=== PATIENT | male | born 1960 | race Caucasian/White ===

== ENCOUNTER 2017-10-29 13:20 | Day surgery (SDC) | payer OTHER ==
[2017-10-29] MEDS ORDERED: LACTATED RINGERS 1,000 ML IV ONE (13:22)
[2017-10-29] MEDS ORDERED: fentaNYL 100 MCG/2 ML VIAL IVP ONE (14:51)
[2017-10-29] MEDS ORDERED: MIDAZOLAM 2 MG/2 ML VIAL IVP ONE (14:51)
[2017-10-29 15:47] VITALS: BP 129/76
== END 2017-10-29 13:21 | disposition home or self-care (01) ==
LOC: SDS 13:20
PROVIDERS: ATTEND Internal Medicine
PROC: 0DBP8ZX Excision of Rectum, Via Natural or Artificial Opening Endoscopic, Diagnostic (ICD-10-PCS; 2017-10-29)
PROC: 0DBK8ZX Excision of Ascending Colon, Via Natural or Artificial Opening Endoscopic, Diagnostic (ICD-10-PCS; principal; 2017-10-29 14:30)
DX: Z12.11 Encounter for screening for malignant neoplasm of colon (principal); K62.1 Rectal polyp; K63.5 Polyp of colon; K64.2 Third degree hemorrhoids; K57.30 Diverticulosis of large intestine without perforation or abscess without bleeding
CPT/HCPCS: 45380; J7120

== ENCOUNTER 2017-11-15 08:16 | Outpatient (CLI) | payer OTHER ==
--- NOTE | 2017-11-15 09:34 | Ultrasound Report ---
EXAM: ABDOMEN ULTRASOUND LIMITED, RUQ EXAM DATE: 11/15/2017 09:17 AM. CLINICAL HISTORY: ABN LIVER ENZYMES. COMPARISON: None. TECHNIQUE: Real-time scanning was performed with static images obtained. FINDINGS: Technically suboptimal evaluation secondary to body habitus and bowel gas. Liver: The parenchyma is echogenic diffusely. No definite focal masses are identified, but evaluatio n is limited secondary to the echogenicity. 16.8 cm. Main portal vein flow: Hepatopetal. Gallbladder: Suboptimal evaluation secondary to mild gallbladder contraction. Borderline wall thicken ing of doubtful clinical significance. No cholelithiasis or sonographic Alvarez sign. Biliary System: CBD measures 6 mm. No intrahepatic or extrahepatic ductal dilatation. Other: No right hydronephrosis. 17 mm simple cyst in the right kidney. IMPRESSION: Technically suboptimal evaluation secondary to body habitus and bowel gas. Findings are c ompatible with hepatic steatosis. [facility] Referring Provider Line: [phone] SITE ID: [id number]
== END 2017-11-15 08:17 | disposition home or self-care (01) ==
LOC: DI 08:16
PROVIDERS: ATTEND Internal Medicine
DX: R74.8 Abnormal levels of other serum enzymes (principal)
CPT/HCPCS: 76705